=== PATIENT | female | born 1950 | race Two or more races ===

== ENCOUNTER → 2017-08-25 | Outpatient (CLI) | payer MEDICARE ==
[~2017-08-25] MED LIST: AML5T PO; LEVO150T68 PO
== END | disposition home or self-care (01) ==
LOC: LAB 10:15
PROVIDERS: ATTEND Internal Medicine Cardiovascular Disease
DX: E03.9 Hypothyroidism, unspecified (principal); R74.8 Abnormal levels of other serum enzymes
CPT/HCPCS: 36415; 82550; 84443

== ENCOUNTER → 2017-09-06 | Outpatient (CLI) | payer MEDICARE | END | disposition home or self-care (01) | LOC: Rad HDHVI 12:53 | PROVIDERS: ATTEND Internal Medicine Cardiovascular Disease | DX: I07.1 Rheumatic tricuspid insufficiency (principal); I10 Essential (primary) hypertension; R53.83 Other fatigue | CPT/HCPCS: 93306 ==

== ENCOUNTER 2020-08-23 06:49 | Day surgery (SDC) | payer MEDICARE ==
[~2020-08-23] VITALS: Ht 162.6 cm; Wt 92.1 kg
[~2020-08-23 06:49] MED LIST changes: -AML5T PO; +AMLO-489 PO; +ASPI-543 PO; +CHOL200010 PO; +LEV150T PO; -LEVO150T68 PO; +METO25TA5 PO
[2020-08-23] MEDS ORDERED: LIDOCAINE 2%HCL (LOCAL ANESTH.) INJ 20ML MDV ONE (07:44)
[2020-08-23] MEDS ORDERED: methylPREDNISolone SOD SUCC 125 MG/2 ML VL ONE (07:47)
[2020-08-23] MEDS ORDERED: ANGIOMAX 250 MG VIAL IV ONE (07:47)
[2020-08-23] MEDS ORDERED: diphenhdrAMINE HCL 50 MG/1 ML VL ONE (07:48)
[2020-08-23] MEDS ORDERED: fentaNYL CITRATE 100 MCG/2 ML VL ONE (07:48)
[2020-08-23] MEDS ORDERED: FAMOTIDINE (10MG/ML) 2ML VL IV ONE (07:49)
[2020-08-23] MEDS ORDERED: SODIUM CHL 0.9% 0 ML ONE (07:49)
[2020-08-23] MEDS ORDERED: MIDAZOLAM HCL 1MG/1ML-2 ML VIAL ONE (07:49)
[2020-08-23] MEDS ORDERED: HEPARIN SODIUM (PORCINE) 5000 UNITS/ML 1ML VIAL ONE (07:49)
[2020-08-23] MEDS ORDERED: VERAPAMIL 2.5MG/ML INJ 2ML VIAL IV ONE (07:50)
[2020-08-23] MEDS ORDERED: ACETAMINOPHEN 500 MG TAB PO PRN (08:45)
== END 2020-08-23 11:20 | disposition home or self-care (01) ==
LOC: CATH 06:49
PROVIDERS: ATTEND Internal Medicine Cardiovascular Disease
DX: I25.10 Atherosclerotic heart disease of native coronary artery without angina pectoris (principal); E78.5 Hyperlipidemia, unspecified; I10 Essential (primary) hypertension; Z20.822 Contact with and (suspected) exposure to COVID-19; Z98.890 Other specified postprocedural states; Z79.899 Other long term (current) drug therapy; Z88.1 Allergy status to other antibiotic agents; Z88.5 Allergy status to narcotic agent; Z91.041 Radiographic dye allergy status; Z88.0 Allergy status to penicillin; Z91.040 Latex allergy status; Z91.048 Other nonmedicinal substance allergy status; Z90.721 Acquired absence of ovaries, unilateral
CPT/HCPCS: 93458; C1769; C1887; C1894; J1200; J1644; J2250; J2930; J3010; J3490; J7040; U0003; 99152